=== PATIENT | male | born 1955 | race Caucasian/White ===

== ENCOUNTER 2018-07-17 16:34 | Emergency (ER) | payer SELFPAY ==
[~2018-07-17] VITALS: Ht 170.2 cm; Wt 60.0 kg
[~2018-07-17 16:34] MED LIST: EPINEPHRINE 0.1MG/ML (1:10,000) 10ML SYR ONE; SODIUM BICARBONATE 7.5% 0.9 MEQ/ML 50ML SYR IV ONE
[2018-07-17] MEDS ORDERED: SODIUM CHLORIDE 0.9% 1000ML BAG (SEPSIS BOLUS) IV ONE (16:45)
[2018-07-17] MEDS ORDERED: PERMETHRIN 5% CREAM 60GM TOP ONE (17:15)
[2018-07-17] MEDS ORDERED: DEXTROSE 50% WATER 50ML SYRINGE IV ONE (19:15)
[2018-07-17] MEDS ORDERED: EPINEPHRINE 0.1MG/ML (1:10,000) 10ML SYR ONE ×2 (19:56→20:08)
[2018-07-17 20:35] VITALS: BP 0/0
== END 2018-07-17 20:35 | disposition expired ==
LOC: ER 16:40 → EDBEDREQ 16:44 → ER 20:35 → CANBEDREQ 21:57
DX: T68.XXXA Hypothermia, initial encounter (principal); I46.9 Cardiac arrest, cause unspecified; X31.XXXA Exposure to excessive natural cold, initial encounter
CPT/HCPCS: 31500; 82962; 92950; 99285; J3490; J7030